=== PATIENT | male | born 1985 | race Caucasian/White ===

== ENCOUNTER 2020-01-06 17:16 | Emergency (ER) | payer SELFPAY | END 2020-01-06 17:50 | disposition home or self-care (01) | LOC: MADERS 17:16 | DX: K64.4 Residual hemorrhoidal skin tags (principal); R11.0 Nausea; F41.9 Anxiety disorder, unspecified; F31.9 Bipolar disorder, unspecified; F17.210 Nicotine dependence, cigarettes, uncomplicated | CPT/HCPCS: 99283 ==

== ENCOUNTER 2020-03-05 21:55 | Emergency (ER) | payer SELFPAY ==
[2020-03-05] MEDS ORDERED: Sulfameth/Trimethoprim DS 800-160mg TAB ONE (22:24)
[2020-03-05] MEDS ORDERED: Ibuprofen 800 MG TAB ONE (22:24)
[2020-03-05] MEDS ORDERED: Acetaminophen 500 MG TAB ONE (22:24)
== END 2020-03-05 22:29 | disposition home or self-care (01) ==
LOC: MADERS 21:55
DX: L03.116 Cellulitis of left lower limb (principal); F31.9 Bipolar disorder, unspecified; F41.9 Anxiety disorder, unspecified; F17.210 Nicotine dependence, cigarettes, uncomplicated
CPT/HCPCS: 99283

== ENCOUNTER 2020-11-30 21:17 | Emergency (ER) | payer MEDICAID, SELFPAY ==
[2020-11-30] MEDS ORDERED: HYDROcodone/Acetaminophen 10/325 mg Tablet ONE (21:52)
[2020-11-30] MEDS ORDERED: Ibuprofen 800 MG TAB ONE (21:53)
[2020-11-30] MEDS ORDERED: Clindamycin 150 MG CAP ONE (21:53)
== END 2020-11-30 22:06 | disposition home or self-care (01) ==
LOC: MADERS 21:17
DX: L03.116 Cellulitis of left lower limb (principal); F17.210 Nicotine dependence, cigarettes, uncomplicated
CPT/HCPCS: 99283

== ENCOUNTER 2023-03-15 19:59 | Emergency (ER) | payer OTHER ==
[2023-03-15] MEDS ORDERED: Clindamycin 150 MG CAP ONE (20:22)
[2023-03-15] MEDS ORDERED: Lidocaine 1% (PF) 30 ML VIAL ONE (20:22)
== END 2023-03-15 20:54 | disposition home or self-care (01) ==
LOC: MADERS 19:59
DX: L02.512 Cutaneous abscess of left hand (principal); F17.210 Nicotine dependence, cigarettes, uncomplicated
CPT/HCPCS: 26010; 87070; 87077; 87186; 87205; J2001

== ENCOUNTER 2023-07-23 17:02 | Emergency (ER) | payer OTHER, SELFPAY ==
[2023-07-23] MEDS ORDERED: Ketorolac Tromethamine 30 MG (1 mL) VIAL ONE (17:53)
== END 2023-07-23 17:58 | disposition home or self-care (01) ==
LOC: MADERS 17:02
DX: M77.9 Enthesopathy, unspecified (principal); M65.842 Other synovitis and tenosynovitis, left hand; F17.210 Nicotine dependence, cigarettes, uncomplicated
CPT/HCPCS: 96372; J1885